=== PATIENT | male | born 1960 | race Caucasian/White ===

== ENCOUNTER → 2017-12-31 | Outpatient (CLI) | payer OTHER ==
--- NOTE | 2017-12-31 17:53 | RADIOLOGY IMAGING REPORT ---
FACILITY: [facility] PATIENT NAME: Nikko Maldonado : 1960 MR: [id number] V: [id number] EXAM DATE: ORDERING PHYSICIAN: [facility] TECHNOLOGIST: Location: [facility] [place] Patient: Nikko Maldonado : 1960 Visit/Account:[id number] Date of Sevice: 12/31/2017 CHEST PA AND LAT COMPARISONS: None. ADDITIONAL PERTINENT HISTORY: Preemployment FINDINGS: Cardiomediastinal silhouette: Negative. Pulmonary vasculature: Negative. Lung abbasi: Negative. Pleural spaces: Negative. Osseous structures: Negative. Surrounding soft tissues: Negative. IMPRESSION: No evidence of acute cardiopulmonary disease. Report Dictated By: Diogenes Andrea MD at 12/31/2017 5:49 PM Report E-Signed By: Diogenes Andrea MD at 12/31/2017 5:49 PM WSN:[id number]
== END ==
LOC: RAD 15:13
PROVIDERS: ATTEND Nurse Practitioner Family
DX: Z02.1 Encounter for pre-employment examination (principal)
CPT/HCPCS: 71046